=== PATIENT | female | born 1970 | race Caucasian/White ===

== ENCOUNTER 2019-03-13 18:39 | Emergency (ER) | payer OTHER ==
[2019-03-13] MEDS: HYDROCODONE/APAP (10/325) TAB PO (19:44)
[2019-03-13] MEDS: IBUPROFEN 800 MG TAB PO (19:44)
== END 2019-03-13 21:25 | disposition home or self-care (01) ==
LOC: E/R 18:39
DX: M53.3 Sacrococcygeal disorders, not elsewhere classified (principal)
CPT/HCPCS: 81025; 99283